=== PATIENT | female | born 2000 | race Caucasian/White ===

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

== ENCOUNTER 2022-07-10 21:20 | Outpatient (CLI) | payer BC, OTHER ==
[~2022-07-10] VITALS: Ht 157.5 cm; Wt 108.6 kg
[~2022-07-10 21:20] MED LIST: CIPR-249 PO; FLOM0.4C39 PO; HYDR-4571 PO; LAMO100T3 PO
[2022-07-10] MEDS ORDERED: VITA100T59 PO (21:33)
[2022-07-10] MEDS ORDERED: IRON27TA2 PO (21:33)
[2022-07-10] MEDS ORDERED: PRENTAB9 PO (21:33)
[2022-07-10] MEDS ORDERED: HOME MED LIST COMPLETE! XX SCH (21:35)
[2022-07-10 21:44] VITALS: BP 95/52
[2022-07-10 23:02] VITALS: BP 115/58
== END 2022-07-10 23:20 | disposition home or self-care (01) ==
LOC: M LDO 21:20
PROVIDERS: ATTEND Obstetrics & Gynecology
DX: O47.03 False labor before 37 completed weeks of gestation, third trimester (principal); O99.013 Anemia complicating pregnancy, third trimester; D64.9 Anemia, unspecified; Z3A.34 34 weeks gestation of pregnancy
CPT/HCPCS: 59025; 81001; G0463

== ENCOUNTER 2022-08-15 14:56 | Outpatient (CLI) | payer BC, OTHER ==
[~2022-08-15] VITALS: Ht 157.5 cm; Wt 113.6 kg
[~2022-08-15 14:56] MED LIST changes: +IRON27TA2 PO; +PRENTAB9 PO; +VITA100T59 PO
[2022-08-15 15:18] VITALS: BP 101/58
[2022-08-15] MEDS ORDERED: HOME MED LIST COMPLETE! XX SCH (15:30)
== END 2022-08-15 16:03 | disposition home or self-care (01) ==
LOC: M LDO 14:56
PROVIDERS: ATTEND Obstetrics & Gynecology
DX: O47.1 False labor at or after 37 completed weeks of gestation (principal); O99.013 Anemia complicating pregnancy, third trimester; D64.9 Anemia, unspecified; Z3A.39 39 weeks gestation of pregnancy
CPT/HCPCS: 59025; G0463